=== PATIENT | male | born 1955 | race Caucasian/White ===

== ENCOUNTER → 2017-09-10 | Day surgery (SDC) | payer BC ==
[~2017-09-10] MED LIST: ARICEPT5 MG PO; BAYER PO; CELEBREX100 MG PO; CYMBALTA30 MG; FENOFIBRATE145 MG PO; FENTANYL CITRATE/PF 100MCG/2 ML INJ ONE; HYOSCYAMINE SULFATE 0.5 MG/ML AMP ONE; LIDOCAINE HCL 2% LOCAL INJ 5 ML SDV VIAL INJ ONE; LISINOPRIL10 MG PO; LYRICA75 MG; METHOCARBAMOL750 MG PO; MIDAZOLAM HCL 2 MG/2 ML VIAL ONE; NAPROXEN250 MG PO; OMEGA-31000 MG PO; OMEPRAZOLE40 MG PO; PHENYLEPHRINE HCL 1% 10 MG/ML VIAL ONE; PROPOFOL IV EMULSION 10 MG/ML 50 ML VIAL ONE; TEMAZEPAM15 MG; ULTRAM50 MG PO
--- OUTSIDE RECORDS SUMMARY | 2017-09-10 06:19 | XMS REPORT ---
Author Author [facility] Address Unknown Phone Unavailable Care Team Providers Care Propeller Engineer Name Role Phone ROSLYN JOHNSON Unavailable Unavailable Problems This patient has no known problems. Allergies, Adverse Reactions, Alerts This patient has no known allergies or adverse reactions. Medications This patient has no known medications. Results Test Description Test Time Test Comments Text Results Atomic Results Result Comments MRI BRAIN WO [place] [address] Patient Name: GAYLA MARSHALL MR #: [id number] : 1955 Age/Sex: 61/M Req # : [id number] [facility] Physician: Ordered by: ROSLYN JOHNSON MD Report #: [id number] Location: MRI Room/Bed: Procedure: 1027- 0002 MRI/MRI BRAIN WO Exam Date: 04/16/17 Exam Time : 0815 REPORT STATUS: Signed Exam: Brain MRI without IV contrast History: TIA. Headache, numbness in hands Comparison studies: None Technique: Axial DWI, 3-D T1 with axial, coronal and sagittal reformats, axial T2 FLAIR, axial T2*GRE and axial T2 FS. Intravenous contrast: None Findings: Scalp: Normal in signal. No masses. Bone marrow: Normal in signal intensity. Brain volume: Appropriate for age. No disproportionate lobar or hippocampal volume loss. Ventricles: Normal in size. No hydrocephalus. Extra axial spaces. No mass, no fluid collection. Parenchyma: No mass, hemorrhage or acute ischemia. A few scattered T2 FLAIR hyperintense foci in the supratentorial white matter are nonspecific but most compatible with chronic small vessel ischemic changes. Suprasellar region : No abnormalities. Craniocervical junction: Patent foramen magnum. No Chiari malformation. Vessels: Normal flow-voids in the arteries and sinuses. IMPRESSION: 1. No acute abnormalities. 2. Specifically, no acute ischemia. 3. Mild supratentorial chronic microvascular ischemic changes. Signed by: Dr. Louisa Ashraf M.D. on 04/16/2017 9:54 AM Dictated By: LOUISA ASHRAF MD 3 Transcribed By: HOLLEY on 04/16/17953 COPY TO: ROSLYN JOHNSON MD
--- NOTE | 2017-09-10 10:17 | Operative Report ---
DATE OF PROCEDURE: September 10, 2017 REFERRING PHYSICIAN: Dr. Jose J Perez PROCEDURE PERFORMED: Colonoscopy with polypectomy. INDICATIONS FOR COLONOSCOPY: Colorectal cancer screening. MEDICATION: Patient was done under MAC. Please see anesthesiologist's note. PROCEDURE: With the patient in the left lateral decubitus position, the flexible fiberoptic Olympus colonoscope was inserted into the rectum with ease and advanced all the way to the cecum. It was then withdrawn slowly. Mucosa overlying the cecum appeared to be within normal limits. Two polyps were hot biopsied from the ascending colon. The transverse appeared to be within normal limits. Two polyps were hot biopsied. One polyp was snared from the descending colon. Five polyps were hot biopsied. One polyp was snared from sigmoid colon and 2 polyps were hot biopsied from the rectum. The scope was then retroflexed into the distal rectum and small internal hemorrhoids were noted, none of which was actively bleeding. The scope was then straightened out. It was subsequently withdrawn. Patient tolerated the procedure well. IMPRESSION 1. Ascending colon polyps times 2, hot biopsied. 2. Descending colon polyps times 3, 1 snared and 2 hot biopsied. 3. Sigmoid colon polyps times 6, five hot biopsied and one snared. 4. Rectal polyps times 2, hot biopsied. 5. Internal hemorrhoids, none actively bleeding. PLAN: Follow up histology. Initiate high-fiber and low-fat diet. Initiate high-fiber supplement. Patient will need a followup colonoscopy in 2-3 years. A total of 13 polyps were removed. Job#: [id number] RI cc:JOSE J PEREZ M.D.
== END | disposition home or self-care (01) ==
LOC: OR 06:16
PROVIDERS: ATTEND Internal Medicine Gastroenterology
DX: Z12.11 Encounter for screening for malignant neoplasm of colon (principal); K63.5 Polyp of colon; K62.1 Rectal polyp; Q27.33 Arteriovenous malformation of digestive system vessel; K64.8 Other hemorrhoids; R19.7 Diarrhea, unspecified; R14.2 Eructation; G47.33 Obstructive sleep apnea (adult) (pediatric); I10 Essential (primary) hypertension; E78.5 Hyperlipidemia, unspecified; R00.1 Bradycardia, unspecified; H91.90 Unspecified hearing loss, unspecified ear; M54.9 Dorsalgia, unspecified; Z01.810 Encounter for preprocedural cardiovascular examination; Z79.82 Long term (current) use of aspirin
CPT/HCPCS: 45384; 45385; 93005; J1980; J2001; J2250; J2370; 45378

== ENCOUNTER → 2021-10-02 | Day surgery (SDC) | payer MEDICARE ==
[2021-09-30 12:51] LABS: BASOPHILS % 0.4 % (0.0-1.0); EOSINOPHILS # (AUTO) 0.3 (0.0-0.4); EOSINOPHILS % 3.1 % (0.0-6.0); HEMATOCRIT 36.7 % (38.2-49.6); HEMOGLOBIN 12.3 g/dL (14.0-18.0); LYMPHOCYTES # (AUTO) 1.2 (1.0-3.2); LYMPHOCYTES % 14.8 % (18.0-39.1); MEAN CORPUSCULAR HEMOGLOBIN 31.3 pg (28-32); MEAN CORPUSCULAR HGB CONC 33.5 g/dL (31-35); MEAN CORPUSCULAR VOLUME 93.4 fL (81-99); MONOCYTES # (AUTO) 0.6 (0.2-0.8); MONOCYTES % 7.7 % (4.4-11.3); NEUTROPHILS % 73.9 % (38.7-80.0); PLATELET COUNT 213 x10e3/uL (140-360); RED BLOOD COUNT 3.93 x10e6/uL (4.3-5.7); RED CELL DISTRIBUTION WIDTH 11.5 % (11.7-14.4)
[~2021-10-02] MED LIST changes: +ATORVASTATIN CA20 MG PO; -HYOSCYAMINE SULFATE 0.5 MG/ML AMP ONE; +HYOSCYAMINE SULFATE 0.5 MG/ML INJ ONE; +METFORMIN HCL500 MG PO; +METOPROLOL TART25 MG PO; +NAMENDA10 MG PO; -PHENYLEPHRINE HCL 1% 10 MG/ML VIAL ONE; +PROPOFOL IV EMULSION 10 MG/ML 20 ML VIAL ONE; -PROPOFOL IV EMULSION 10 MG/ML 50 ML VIAL ONE; +TRAZADONE PO; +VITAMIN D250 MC1 PO; +WARFARIN SODIUM1 MG PO; +WARFARIN SODIUM3 MG PO
[2021-10-02 07:21] LABS: INR 0.97; PROTHROMBIN TIME 13.8 seconds (11.9-14.5)
[2021-10-02 07:22] LABS: PARTIAL THROMBOPLASTIN TIME 24.5 seconds (23.8-35.5)
[2021-10-02 09:45] VITALS: BP 150/81
[2021-10-02 15:42] LABS: WBC,FECAL (FECAL LACTOFERRIN) NEGATIVE (NEGATIVE)
[2021-10-03 14:40] LABS: C DIFFICILE TOXIN A&B AMP PROB NEGATIVE (NEGATIVE)
== END | disposition home or self-care (01) ==
LOC: OR 06:41
PROVIDERS: ATTEND Internal Medicine Gastroenterology
DX: K29.70 Gastritis, unspecified, without bleeding (principal); D12.0 Benign neoplasm of cecum; D12.2 Benign neoplasm of ascending colon; D12.4 Benign neoplasm of descending colon; D12.5 Benign neoplasm of sigmoid colon; K62.1 Rectal polyp; K31.7 Polyp of stomach and duodenum; K63.89 Other specified diseases of intestine; K20.90 Esophagitis, unspecified without bleeding; K31.89 Other diseases of stomach and duodenum; K21.9 Gastro-esophageal reflux disease without esophagitis; K64.8 Other hemorrhoids; G47.30 Sleep apnea, unspecified; R63.4 Abnormal weight loss; E11.9 Type 2 diabetes mellitus without complications; I10 Essential (primary) hypertension; R00.1 Bradycardia, unspecified; E78.5 Hyperlipidemia, unspecified; H91.90 Unspecified hearing loss, unspecified ear; G30.9 Alzheimer's disease, unspecified; F02.80 Dementia in other diseases classified elsewhere, unspecified severity, without behavioral disturbance, psychotic disturbance, mood disturbance, and anxiety; Z01.810 Encounter for preprocedural cardiovascular examination; Z01.812 Encounter for preprocedural laboratory examination; Z20.822 Contact with and (suspected) exposure to COVID-19; Z79.84 Long term (current) use of oral hypoglycemic drugs; Z79.01 Long term (current) use of anticoagulants; Z79.899 Other long term (current) drug therapy; Z95.2 Presence of prosthetic heart valve; Z95.5 Presence of coronary angioplasty implant and graft
CPT/HCPCS: 36415 ×2; 43239; 45380; 45385; 82948; 83630; 83993; 85025; 85610; 85730; 87045; 87177; 87328; 87493; 88305; 88312; 93005; C9113; J1980; J2001; J2250; J2704; J3010; U0002; 45378